=== PATIENT | male | born 1955 | race Hispanic/Latino ===

== ENCOUNTER 2017-08-12 18:31 | Emergency (ER) | payer OTHER ==
[2017-08-12] MEDS ORDERED: BENADRYL ONE (18:44)
[2017-08-12] MEDS ORDERED: REGLAN ONE (18:44)
[2017-08-12] MEDS ORDERED: BENADRYL IV ONE (18:51)
[2017-08-12] MEDS ORDERED: REGLAN IV ONE (18:51)
[2017-08-12] MEDS ORDERED: PEPCID IV ONE (18:54)
[2017-08-12] MEDS ORDERED: NACL 0.9% 1000 ML 1,000 ML IV ONE (18:58)
--- NOTE | 2017-08-12 18:59 | Emergency Department Report ---
ED Abdominal Pain HPI - General Chief Complaint: Abdominal Pain Stated Complaint: N/V AND ABD PAIN Time Seen by Provider: 08/12/17 18:40 Source: patient, old records reviewed (no previous [facility] record available for review) Mode of arrival: Stretcher Limitations: No Limitations - History of Present Illness Initial Comments: 61-year-old male with a past medical history of atrial fibrillation currently on Eliquis, hypertension, alcohol abuse, alcohol-induced pancreatitis, and CAD presents to the hospital with complains of intractable nausea and vomiting and a syncopal episode. Patient has been having nausea vomiting since last night. Today while taking a shower sitting down he had a syncopal episode and bumped his head. Patient with intractable nausea and vomiting despite receiving Zofran in route to the ER patient continues to vomit. He complains of mid and upper burning constant abdominal pain worse with vomiting. He also complains of a headache. Patient admits to daily alcohol use with his continued alcohol use one week ago. Alcohol withdrawal tremors in the past without seizure patient denies tremors at this time. No previous abdominal surgeries. No reports of fever, hematemesis, melena, hematochezia, or diarrhea. Patient states he had a cardiac cath performed 6 months ago in [place] showing 40% blockage of one of his arteries. He states he did not require any stenting or bypass. - Related Data Previous Rx's Medication Instructions Recorded Last Taken Type HYDROcodone/APAP 5-325 [[place] 1 each PO Q6HR PRN #14 tablet 08/13/17 Unknown Rx 5/325] Nitrofurantoin [place]/M-Cryst 100 mg PO Q12HR #10 capsule 08/13/17 Unknown Rx [Macrobid CAP] Ondansetron [Zofran Odt] 4 mg PO Q4HR PRN #20 tab.rapdis 08/13/17 Unknown Rx Promethazine HCl [Phenergan SUPPOS] 25 mg RC Q6HR PRN #20 supp.rect 08/13/17 Unknown Rx chlordiazePOXIDE [Librium] 50 mg PO DAILY #20 capsule 08/13/17 Unknown Rx Allergies Allergy/AdvReac Type Severity Reaction Status Date / Time No Known Allergies Allergy Unverified 08/12/17 23:02 ED Review of Systems ROS: Stated complaint: N/V AND ABD PAIN Other details as noted in HPI Comment: All other systems reviewed and negative Other: Constitutional: No fevers chills Eyes: No eye pain visual changes or discharge ENT: No ear pain or throat pain Neck: Denies pain Respiratory: Denies cough wheezing shortness of breath Cardiovascular: Denies chest pain, palpitations GI: As per HPI : Denies dysuria Musculoskeletal: Denies back pain Skin: Denies rash, lesions, erythema Neurologic: Denies numbness, weakness Psychiatric: Denies suicidal ideation, hallucinations ED Past Medical Hx - Past Medical History Previous Medical History?: Yes Hx Hypertension: Yes Hx Heart Attack/AMI: Yes (aprox feb 2017 cath with 40% stenosis, no intervention as per pt) Hx Diabetes: No Additional medical history: afib. Alcohol-induced pancreatitis. Alcohol abuse - Surgical History Past Surgical History?: Yes Additional Surgical History: heart cath aprox 02/2017 [place] - Social History Smoking Status: Current Every Day Smoker Substance Use Type: Alcohol - Medications Home Medications: Home Medications Medication Instructions Recorded Confirmed Last Taken Type HYDROcodone/APAP 5-325 [[place] 1 each PO Q6HR PRN #14 tablet 08/13/17 Unknown Rx 5/325] Nitrofurantoin [place]/M-Cryst 100 mg PO Q12HR #10 capsule 08/13/17 Unknown Rx [Macrobid CAP] Ondansetron [Zofran Odt] 4 mg PO Q4HR PRN #20 tab.rapdis 08/13/17 Unknown Rx Promethazine HCl [Phenergan SUPPOS] 25 mg RC Q6HR PRN #20 supp.rect 08/13/17 Unknown Rx chlordiazePOXIDE [Librium] 50 mg PO DAILY #20 capsule 08/13/17 Unknown Rx ED Physical Exam - General Limitations: No Limitations - Other Other exam information: General: Moderate distress secondary to pain and vomiting Head exam: Atraumatic, normocephalic Eyes exam: Normal appearance, pupils equal reactive to light, extraocular movements intact ENT: Moist mucous membrane, normal oropharynx Neck exam: Normal inspection, full range of motion, no meningismus nontender Respiratory exam: Clear to auscultation bilateral, no wheezes, rales, crackles Cardiovascular: Tachycardic irregular rhythm Abdomen: Soft, nondistended, mid abdominal tenderness. Normal bowel sounds. No rebound or guarding. Persistent vomiting Extremity: Full range of motion normal inspection no deformity Back: Normal Inspection, full range of motion, no tenderness Neurologic: Alert, oriented x3, cranial nerves intact, no motor or sensory deficit Psychiatric: normal affect, normal mood Skin: Warm, dry, intact ED Course Vital Signs 08/12/17 08/12/17 08/12/17 18:39 18:51 19:01 Temperature 99.5 F Pulse Rate 130 H 129 H Respiratory 16 16 Rate Blood Pressure 130/79 128/86 152/102 O2 Sat by Pulse 100 96 98 Oximetry 08/12/17 08/12/17 08/12/17 19:03 19:15 19:30 Temperature Pulse Rate 137 H 106 H Respiratory 20 24 20 Rate Blood Pressure 128/86 117/90 O2 Sat by Pulse 100 100 Oximetry 08/12/17 08/12/17 08/12/17 19:45 20:01 20:12 Temperature 98 F Pulse Rate 102 H 92 H Respiratory 15 17 Rate Blood Pressure 125/83 112/91 O2 Sat by Pulse 97 98 Oximetry 08/12/17 08/12/17 08/12/17 20:15 20:30 21:03 Temperature Pulse Rate 92 H 95 H 98 H Respiratory 20 20 Rate Blood Pressure 115/95 121/61 121/61 O2 Sat by Pulse 100 96 Oximetry 08/12/17 08/12/17 08/12/17 21:15 21:31 21:45 Temperature Pulse Rate 88 87 97 H Respiratory 20 18 18 Rate Blood Pressure 121/61 121/61 154/80 O2 Sat by Pulse Oximetry 08/12/17 08/12/17 08/12/17 22:01 22:15 22:21 Temperature Pulse Rate 85 93 H 95 H Respiratory 19 20 23 Rate Blood Pressure 140/80 125/74 125/74 O2 Sat by Pulse 76 L 99 98 Oximetry 08/12/17 08/12/17 08/12/17 22:30 22:45 23:00 Temperature Pulse Rate 80 92 H 92 H Respiratory 19 22 17 Rate Blood Pressure 138/72 130/82 122/76 O2 Sat by Pulse 97 98 76 L Oximetry 08/12/17 08/12/17 08/12/17 23:15 23:30 23:45 Temperature Pulse Rate 80 81 87 Respiratory 22 21 16 Rate Blood Pressure 126/75 123/72 119/78 O2 Sat by Pulse 99 98 99 Oximetry 08/13/17 08/13/17 08/13/17 00:00 00:15 00:30 Temperature Pulse Rate 84 94 H 90 Respiratory 21 22 18 Rate Blood Pressure 118/73 117/78 117/81 O2 Sat by Pulse 95 99 98 Oximetry 08/13/17 08/13/17 08/13/17 00:45 01:00 01:16 Temperature Pulse Rate 84 88 99 H Respiratory 19 17 13 Rate Blood Pressure 127/84 136/65 113/59 O2 Sat by Pulse 99 91 91 Oximetry 08/13/17 08/13/17 01:30 01:45 Temperature Pulse Rate 82 88 Respiratory 13 12 Rate Blood Pressure 112/61 102/67 O2 Sat by Pulse 91 94 Oximetry - Reevaluation(s) Reevaluation #1: 08/13/17 00:51 After patient was medicated he slept or majority of ED stay with no other vomiting. Heart rate also improved ED Medical Decision Making - Lab Data Result diagrams: 08/12/17 18:55 08/12/17 18:55 Lab Results 08/12/17 08/12/17 08/12/17 Range/Units 18:55 18:55 18:55 WBC 8.0 (4.5-11.0) K/mm3 RBC 4.58 (3.65-5.03) M/mm3 Hgb 16.1 H (11.8-15.2) gm/dl Hct 48.0 H (35.5-45.6) % MCV 105 H (84-94) fl MCH 35 H (28-32) pg MCHC 34 (32-34) % RDW 15.4 H (13.2-15.2) % Plt Count 139 L (140-440) K/mm3 Lymph % (Auto) Remanufacturing Technician [place] % (Auto) Remanufacturing Technician Eos % (Auto) Remanufacturing Technician Baso % (Auto) Remanufacturing Technician Lymph # Remanufacturing Technician [place] # Remanufacturing Technician Eos # Remanufacturing Technician Baso # Remanufacturing Technician Add Manual Diff Complete Total Counted 100 Seg Neutrophils % Remanufacturing Technician Seg Neuts % (Manual) 88.0 H (40.0-70.0) % Band Neutrophils % 0 % Lymphocytes % (Manual) 9.0 L (13.4-35.0) % Reactive Lymphs % (Man) 0 % Monocytes % (Manual) 3.0 (0.0-7.3) % Eosinophils % (Manual) 0 (0.0-4.3) % Basophils % (Manual) 0 (0.0-1.8) % Metamyelocytes % 0 % Myelocytes % 0 % Promyelocytes % 0 % Blast Cells % 0 % Nucleated RBC % Not Reportable Seg Neutrophils # Remanufacturing Technician Seg Neutrophils # Man 7.0 (1.8-7.7) K/mm3 Band Neutrophils # 0.0 K/mm3 Lymphocytes # (Manual) 0.7 L (1.2-5.4) K/mm3 Abs React Lymphs (Man) 0.0 K/mm3 Monocytes # (Manual) 0.2 (0.0-0.8) K/mm3 Eosinophils # (Manual) 0.0 (0.0-0.4) K/mm3 Basophils # (Manual) 0.0 (0.0-0.1) K/mm3 Metamyelocytes # 0.0 K/mm3 Myelocytes # 0.0 K/mm3 Promyelocytes # 0.0 K/mm3 Blast Cells # 0.0 K/mm3 WBC Morphology Not Reportable Hypersegmented Neuts Not Reportable Hyposegmented Neuts Not Reportable Hypogranular Neuts Not Reportable Smudge Cells Not Reportable Toxic Granulation Not Reportable Toxic Vacuolation Not Reportable Dohle Bodies Not Reportable Pelger-Huet Anomaly Not Reportable Blanka Rods Not Reportable Platelet Estimate Consistent w auto Clumped Platelets Not Reportable Plt Clumps, EDTA Not Reportable Large Platelets Not Reportable Giant Platelets Not Reportable Platelet Satelliting Not Reportable Plt Morphology Comment Not Reportable RBC Morphology Not Reportable Dimorphic RBCs Not Reportable Polychromasia Not Reportable Hypochromasia Not Reportable Poikilocytosis Not Reportable Anisocytosis Few Microcytosis Not Reportable Macrocytosis Not Reportable Spherocytes Not Reportable Pappenheimer Bodies Not Reportable Sickle Cells Not Reportable Target Cells Not Reportable Tear Drop Cells Not Reportable Ovalocytes Not Reportable Helmet Cells Not Reportable [place] Bodies Not Reportable [place] Rings Not Reportable Sebas Cells Not Reportable Bite Cells Not Reportable Crenated Cell Not Reportable Elliptocytes Not Reportable Acanthocytes (Spur) Not Reportable Rouleaux Not Reportable Hemoglobin C Crystals Not Reportable Schistocytes Not Reportable Malaria parasites Not Reportable Shivam Bodies Not Reportable Hem Pathologist Commnt No PT (12.2-14.9) Sec. INR (0.87-1.13) APTT (24.2-36.6) Sec. Sodium 139 (137-145) mmol/L Potassium 3.7 (3.6-5.0) mmol/L Chloride 93.6 L (98-107) mmol/L Carbon Dioxide 22 (22-30) mmol/L Anion Gap 27 mmol/L BUN 16 (9-20) mg/dL Creatinine 0.9 (0.8-1.5) mg/dL Estimated GFR > 60 ml/min BUN/Creatinine Ratio 18 % Glucose 127 H (75-100) mg/dL Calcium 9.3 (8.4-10.2) mg/dL Magnesium 1.30 L (1.7-2.3) mg/dL Total Bilirubin 2.10 H (0.1-1.2) mg/dL AST 50 H (5-40) units/L ALT 35 (7-56) units/L Alkaline Phosphatase 42 (35-129) units/L Total Creatine Kinase 284 H (55-170) units/L CK-MB (CK-2) 4.6 H (0.0-4.0) ng/mL CK-MB (CK-2) Rel Index 1.6 (0-4) Troponin T < 0.010 (0.00-0.029) ng/mL Total Protein 7.3 (6.3-8.2) g/dL Albumin 4.5 (3.9-5) g/dL Albumin/Globulin Ratio 1.6 % Lipase 44 (13-60) units/L TSH 0.844 (0.270-4.200) mlU/mL Free T4 1.78 H (0.76-1.46) ng/dL Urine Color (Yellow) Urine Turbidity (Clear) Urine pH (5.0-7.0) Ur Specific [place] (1.003-1.030) Urine Protein (Negative) mg/dL Urine Glucose (UA) (Negative) mg/dL Urine Ketones (Negative) mg/dL Urine Blood (Negative) Urine Nitrite (Negative) Urine Bilirubin (Negative) Urine Urobilinogen (<2.0) mg/dL Ur Leukocyte Esterase (Negative) Urine WBC (Auto) (0.0-6.0) /HPF Urine RBC (Auto) (0.0-6.0) /HPF U Epithel Cells (Auto) (0-13.0) /HPF Urine Bacteria (Auto) (Negative) /HPF Hyaline Casts /LPF Urine Mucus /HPF Urine Opiates Screen Urine Methadone Screen Ur Barbiturates Screen Ur Phencyclidine Scrn Ur Amphetamines Screen U Benzodiazepines Scrn Urine Cocaine Screen U Marijuana (THC) Screen Drugs of Abuse Note Plasma/Serum Alcohol (0-0.07) % 08/12/17 08/12/17 08/12/17 Range/Units 18:55 18:55 20:30 WBC (4.5-11.0) K/mm3 RBC (3.65-5.03) M/mm3 Hgb (11.8-15.2) gm/dl Hct (35.5-45.6) % MCV (84-94) fl MCH (28-32) pg MCHC (32-34) % RDW (13.2-15.2) % Plt Count (140-440) K/mm3 Lymph % (Auto) [place] % (Auto) Eos % (Auto) Baso % (Auto) Lymph # [place] # Eos # Baso # Add Manual Diff Total Counted Seg Neutrophils % Seg Neuts % (Manual) (40.0-70.0) % Band Neutrophils % % Lymphocytes % (Manual) (13.4-35.0) % Reactive Lymphs % (Man) % Monocytes % (Manual) (0.0-7.3) % Eosinophils % (Manual) (0.0-4.3) % Basophils % (Manual) (0.0-1.8) % Metamyelocytes % % Myelocytes % % Promyelocytes % % Blast Cells % % Nucleated RBC % Seg Neutrophils # Seg Neutrophils # Man (1.8-7.7) K/mm3 Band Neutrophils # K/mm3 Lymphocytes # (Manual) (1.2-5.4) K/mm3 Abs React Lymphs (Man) K/mm3 Monocytes # (Manual) (0.0-0.8) K/mm3 Eosinophils # (Manual) (0.0-0.4) K/mm3 Basophils # (Manual) (0.0-0.1) K/mm3 Metamyelocytes # K/mm3 Myelocytes # K/mm3 Promyelocytes # K/mm3 Blast Cells # K/mm3 WBC Morphology Hypersegmented Neuts Hyposegmented Neuts Hypogranular Neuts Smudge Cells Toxic Granulation Toxic Vacuolation Dohle Bodies Pelger-Huet Anomaly Blanka Rods Platelet Estimate Clumped Platelets Plt Clumps, EDTA Large Platelets Giant Platelets Platelet Satelliting Plt Morphology Comment RBC Morphology Dimorphic RBCs Polychromasia Hypochromasia Poikilocytosis Anisocytosis Microcytosis Macrocytosis Spherocytes Pappenheimer Bodies Sickle Cells Target Cells Tear Drop Cells Ovalocytes Helmet Cells [place] Bodies Toutle Rings [place] Cells Bite Cells Crenated Cell Elliptocytes Acanthocytes (Spur) Rouleaux Hemoglobin C Crystals Schistocytes Malaria parasites Shivam Bodies Hem Pathologist Commnt PT 12.3 (12.2-14.9) Sec. INR 0.87 (0.87-1.13) APTT 27.5 (24.2-36.6) Sec. Sodium (137-145) mmol/L Potassium (3.6-5.0) mmol/L Chloride (98-107) mmol/L Carbon Dioxide (22-30) mmol/L Anion Gap mmol/L BUN (9-20) mg/dL Creatinine (0.8-1.5) mg/dL Estimated GFR ml/min BUN/Creatinine Ratio % Glucose (75-100) mg/dL Calcium (8.4-10.2) mg/dL Magnesium (1.7-2.3) mg/dL Total Bilirubin (0.1-1.2) mg/dL AST (5-40) units/L ALT (7-56) units/L Alkaline Phosphatase (35-129) units/L Total Creatine Kinase (55-170) units/L CK-MB (CK-2) (0.0-4.0) ng/mL CK-MB (CK-2) Rel Index (0-4) Troponin T (0.00-0.029) ng/mL Total Protein (6.3-8.2) g/dL Albumin (3.9-5) g/dL Albumin/Globulin Ratio % Lipase (13-60) units/L TSH (0.270-4.200) mlU/mL Free T4 (0.76-1.46) ng/dL Urine Color [place] (Yellow) Urine Turbidity Clear (Clear) Urine pH 7.0 (5.0-7.0) Ur Specific [place] 1.021 (1.003-1.030) Urine Protein 100 mg/dl (Negative) mg/dL Urine Glucose (UA) 50 (Negative) mg/dL Urine Ketones Tr (Negative) mg/dL Urine Blood Sm (Negative) Urine Nitrite Neg (Negative) Urine Bilirubin Neg (Negative) Urine Urobilinogen 4.0 (<2.0) mg/dL Ur Leukocyte Esterase Neg (Negative) Urine WBC (Auto) 9.0 H (0.0-6.0) /HPF Urine RBC (Auto) 13.0 (0.0-6.0) /HPF U Epithel Cells (Auto) < 1.0 (0-13.0) /HPF Urine Bacteria (Auto) 1+ (Negative) /HPF Hyaline Casts 1 /LPF Urine Mucus 2+ /HPF Urine Opiates Screen Urine Methadone Screen Ur Barbiturates Screen Ur Phencyclidine Scrn Ur Amphetamines Screen U Benzodiazepines Scrn Urine Cocaine Screen U Marijuana (THC) Screen Drugs of Abuse Note Plasma/Serum Alcohol < 0.01 (0-0.07) % 08/12/17 Range/Units 20:30 WBC (4.5-11.0) K/mm3 RBC (3.65-5.03) M/mm3 Hgb (11.8-15.2) gm/dl Hct (35.5-45.6) % MCV (84-94) fl MCH (28-32) pg MCHC (32-34) % RDW (13.2-15.2) % Plt Count (140-440) K/mm3 Lymph % (Auto) [place] % (Auto) Eos % (Auto) Baso % (Auto) Lymph # [place] # Eos # Baso # Add Manual Diff Total Counted Seg Neutrophils % Seg Neuts % (Manual) (40.0-70.0) % Band Neutrophils % % Lymphocytes % (Manual) (13.4-35.0) % Reactive Lymphs % (Man) % Monocytes % (Manual) (0.0-7.3) % Eosinophils % (Manual) (0.0-4.3) % Basophils % (Manual) (0.0-1.8) % Metamyelocytes % % Myelocytes % % Promyelocytes % % Blast Cells % % Nucleated RBC % Seg Neutrophils # Seg Neutrophils # Man (1.8-7.7) K/mm3 Band Neutrophils # K/mm3 Lymphocytes # (Manual) (1.2-5.4) K/mm3 Abs React Lymphs (Man) K/mm3 Monocytes # (Manual) (0.0-0.8) K/mm3 Eosinophils # (Manual) (0.0-0.4) K/mm3 Basophils # (Manual) (0.0-0.1) K/mm3 Metamyelocytes # K/mm3 Myelocytes # K/mm3 Promyelocytes # K/mm3 Blast Cells # K/mm3 WBC Morphology Hypersegmented Neuts Hyposegmented Neuts Hypogranular Neuts Smudge Cells Toxic Granulation Toxic Vacuolation Dohle Bodies Pelger-Huet Anomaly Blanka Rods Platelet Estimate Clumped Platelets Plt Clumps, EDTA Large Platelets Giant Platelets Platelet Satelliting Plt Morphology Comment RBC Morphology Dimorphic RBCs Polychromasia Hypochromasia Poikilocytosis Anisocytosis Microcytosis Macrocytosis Spherocytes Pappenheimer Bodies Sickle Cells Target Cells Tear Drop Cells Ovalocytes Helmet Cells [place] Bodies Toutle Rings [place] Cells Bite Cells Crenated Cell Elliptocytes Acanthocytes (Spur) Rouleaux Hemoglobin C Crystals Schistocytes Malaria parasites Shivam Bodies Hem Pathologist Commnt PT (12.2-14.9) Sec. INR (0.87-1.13) APTT (24.2-36.6) Sec. Sodium (137-145) mmol/L Potassium (3.6-5.0) mmol/L Chloride (98-107) mmol/L Carbon Dioxide (22-30) mmol/L Anion Gap mmol/L BUN (9-20) mg/dL Creatinine (0.8-1.5) mg/dL Estimated GFR ml/min BUN/Creatinine Ratio % Glucose (75-100) mg/dL Calcium (8.4-10.2) mg/dL Magnesium (1.7-2.3) mg/dL Total Bilirubin (0.1-1.2) mg/dL AST (5-40) units/L ALT (7-56) units/L Alkaline Phosphatase (35-129) units/L Total Creatine Kinase (55-170) units/L CK-MB (CK-2) (0.0-4.0) ng/mL CK-MB (CK-2) Rel Index (0-4) Troponin T (0.00-0.029) ng/mL Total Protein (6.3-8.2) g/dL Albumin (3.9-5) g/dL Albumin/Globulin Ratio % Lipase (13-60) units/L TSH (0.270-4.200) mlU/mL Free T4 (0.76-1.46) ng/dL Urine Color (Yellow) Urine Turbidity (Clear) Urine pH (5.0-7.0) Ur Specific [place] (1.003-1.030) Urine Protein (Negative) mg/dL Urine Glucose (UA) (Negative) mg/dL Urine Ketones (Negative) mg/dL Urine Blood (Negative) Urine Nitrite (Negative) Urine Bilirubin (Negative) Urine Urobilinogen (<2.0) mg/dL Ur Leukocyte Esterase (Negative) Urine WBC (Auto) (0.0-6.0) /HPF Urine RBC (Auto) (0.0-6.0) /HPF U Epithel Cells (Auto) (0-13.0) /HPF Urine Bacteria (Auto) (Negative) /HPF Hyaline Casts /LPF Urine Mucus /HPF Urine Opiates Screen Presumptive negative Urine Methadone Screen Presumptive negative Ur Barbiturates Screen Presumptive negative Ur Phencyclidine Scrn Presumptive negative Ur Amphetamines Screen Presumptive negative U Benzodiazepines Scrn Presumptive negative Urine Cocaine Screen Presumptive negative U Marijuana (THC) Screen Presumptive negative Drugs of Abuse Note Disclamer Plasma/Serum Alcohol (0-0.07) % - EKG Data -: EKG Interpreted by Me (atrial fibrillation 124) EKG shows normal: axis (-30), QRS complexes (92), ST-T waves (no stemi/t inv) Rate: tachycardia - Radiology Data Radiology results: report reviewed Chest x-ray: No acute findings CT head: Arachnoid cyst in the posterior fossa. No acute intracranial process CT of the pelvis with IV contrast: No acute intra-abdominal process. Bilateral nonobstructive renal calculi. Left mid pole renal cyst contains calcification along wall. Enlarged prostate. Sigmoid diverticulosis. Bilateral inguinal hernias and a small hiatal hernia - Medical Decision Making Syncope likely related to dehydration and frequent vomiting episodes. Tachycardia improved with hydration, pain and vomiting control as well as after Ativan No tremors noted upon arrival patient states she has had some mild tremors at home like he secondary to alcohol withdrawal Patient will be discharged home with symptomatic treatment for mild alcohol withdrawal tremors, vomiting last gastritis, and UTI based increased urine wbc Patient received IV magnesium for mild hypomagnesemia, banana bag, and normal saline addition to Zofran, Reglan, and Dilaudid - Differential Diagnosis A. fib RVR, pancreatitis, dehydration, gastritis, [place] Critical Care Time: No Critical care attestation.: If time is entered above; I have spent that time in minutes in the direct care of this critically ill patient, excluding procedure time. ED Disposition Clinical Impression: Acute gastritis, Alcohol dependence, UTI (urinary tract infection), Chronic atrial fibrillation, Hypomagnesemia Disposition: TO HOME OR SELFCARE Is pt being admited?: No Does the pt Need Aspirin: No Condition: Stable Instructions: Gastritis (ED), Urinary Tract Infection in Women (ED), Abuse of Alcohol (ED) Additional Instructions: Take the medication as prescribed. Take Librium to prevent alcohol withdrawal symptoms. Please return if symptoms worsen. A CAT scan does show several incidental findings including stones in the kidneys, enlarged prostate, and diverticulosis. Follow with a primary care doctor for further monitoring Prescriptions: chlordiazePOXIDE [Librium] 50 mg PO DAILY #20 capsule HYDROcodone/APAP 5-325 [[place] 5/325] 1 each PO Q6HR PRN #14 tablet PRN Reason: Pain Nitrofurantoin [place]/M-Cryst [Macrobid CAP] 100 mg PO Q12HR #10 capsule Ondansetron [Zofran Odt] 4 mg PO Q4HR PRN #20 tab.rapdis PRN Reason: Nausea And Vomiting Promethazine HCl [Phenergan SUPPOS] 25 mg RC Q6HR PRN #20 supp.rect PRN Reason: Nausea And Vomiting Referrals: PRIMARY CARE, [Primary Care Provider] - 3-5 Days [facility] [Provider Group] - 3-5 Days POOJA ALEXANDER MD [Staff Physician] - 3-5 Days [facility] [Outside] - 3-5 Days (for help with alcohol abuse ) Time of Disposition: 02:07
[2017-08-12] MEDS ORDERED: ATIVAN IV ONE (19:03)
[2017-08-12 19:20] LABS: Hemoglobin 16.1 gm/dl (11.8-15.2); Mean Corpuscular HGB Conc 34 % (32-34); Mean Corpuscular Hemoglobin 35 pg (28-32); Mean Corpuscular Volume 105 fl (84-94); Platelet Count 139 K/mm3 (140-440); Red Blood Count 4.58 M/mm3 (3.65-5.03); Red Cell Distribution Width 15.4 % (13.2-15.2)
[2017-08-12 19:38] LABS: INR 0.87 (0.87-1.13); Partial Thromboplastin Time 27.5 Sec. (24.2-36.6)
[2017-08-12 19:40] LABS: Creatine Kinase MB 4.6 ng/mL (0.0-4.0)
[2017-08-12 19:41] LABS: Alanine Aminotransferase 35 units/L (7-56); Albumin 4.5 g/dL (3.9-5); BUN/Creatinine Ratio 18; Blood Urea Nitrogen 16 mg/dL (9-20); Calcium 9.3 mg/dL (8.4-10.2); Hemolysis Index 64; Lipase 44 units/L (13-60)
[2017-08-12] MEDS ORDERED: MAGNESIUM SULFATE 2GM/50ML 2 GM/50 ML BAG IV ONE (19:45)
[2017-08-12 19:46] LABS: Free T4 (Free Thyroxine) 1.78 ng/dL (0.76-1.46)
[2017-08-12 19:58] LABS: Basophils % (Manual) 0 % (0.0-1.8); Eosinophils % (Manual) 0 % (0.0-4.3); Total Cells Counted 100
[2017-08-12 20:00] LABS: Anisocytosis Few; Platelet Estimate Consistent w Auto
[2017-08-12] MEDS ORDERED: FOLVITE 1 MG, INFUVITE 10 ML in NACL 0.9% 1000 ML 1,000 ML IV ONE (20:00)
[2017-08-12] MEDS ORDERED: VITAMIN B-1 100 MG, FOLVITE 1 MG, INFUVITE 10 ML in NACL 0.9% 1000 ML 1,000 ML IV ONE (20:00)
[2017-08-12] MEDS ORDERED: NACL ONE (20:23)
[2017-08-12 21:05] LABS: Bacteria,Urine 1+ /HPF (Negative); Bilirubin,Urine NEG (Negative); Blood,Urine SM (Negative); Color,Urine Amber (Yellow); Hyaline Casts,Urine 1 /LPF; Mucus,Urine 2+ /HPF; Nitrite,Urine NEG (Negative)
--- NOTE | 2017-08-12 21:21 | XRay Report ---
FINAL REPORT EXAM: XR CHEST 1V AP HISTORY: cp TECHNIQUE: AP portable view of the chest PRIORS: None. FINDINGS: Lines, tubes, and devices: N/A Lungs and pleura: Trachea is normal in position. Calcified granulomas in the left lateral costophrenic angle are noted. Lungs are clear of infiltrate, pleural effusion, vascular congestion, or pneumothorax. Cardiomediastinal silhouette: Cardiac and mediastinal silhouettes are unremarkable. Other: Bony structures are intact. IMPRESSION: No acute cardiopulmonary process seen.
[2017-08-12 21:27] LABS: Amphetamine Screen,Urine PRESUMPTIVE NEGATIVE; Benzodiazepines Screen,Urine PRESUMPTIVE NEGATIVE; Cannabinoid Screen,Urine PRESUMPTIVE NEGATIVE; Cocaine Screen,Urine PRESUMPTIVE NEGATIVE; Methadone Screen,Urine PRESUMPTIVE NEGATIVE; Opiate Screen,Urine PRESUMPTIVE NEGATIVE
[2017-08-12] MEDS ORDERED: ROCEPHIN/NS 1 GM/50 ML 1 GM/50 ML BAG IV ONE (22:02)
--- NOTE | 2017-08-12 22:11 | Cat Scan Report ---
FINAL REPORT EXAM: CT HEAD/BRAIN WO CON HISTORY: syncope TECHNIQUE: Standard unenhanced CT of the head at 5.0 millimeter axial increments. PRIORS: None. FINDINGS: The ventricular system is normal in size and configuration. There is no evidence for parenchymal volume loss. A low-density arachnoid cyst is present in the posterior fossa to the left of midline measuring 4.0 x 2.8 cm. There is no evidence for mass lesion, mass effect, midline shift, acute intracranial hemorrhage, or acute ischemia/ infarction. No evidence for acute skull fracture is seen. No abnormality in the overlying scalp soft tissues is seen. Visualized paranasal sinuses are clear. IMPRESSION: Arachnoid cyst in the posterior fossa. No acute intracranial process noted.
[2017-08-12] MEDS ORDERED: cefTRIAXone 1 GM in NACL 0.9% 20 ML IV ONE (22:15)
--- NOTE | 2017-08-12 22:18 | Cat Scan Report ---
FINAL REPORT EXAM: CT ABDOMEN PELVIS W CON HISTORY: n,v, hx of ETOH pancreatitis TECHNIQUE: Standard enhanced CT of the abdomen and pelvis. Coronal and sagittal reconstruction was also performed. Contrast: 100 mL Omnipaque 300 given IV. PRIORS: None. FINDINGS: Within the abdomen, the liver, spleen, pancreas, gallbladder, and adrenal glands are unremarkable. A nonobstructing 2 mm calculus in the midpole left kidney is seen. A punctate 2 mm nonobstructing calculus in the upper pole right kidney is seen. There is a 1.4 x 1.6 cm cystic focus in the anterior midpole left kidney. A small punctate calcifications present along 1 wall (axial image 86). No evidence for retroperitoneal or pelvic adenopathy is seen. The bowel loops have normal caliber. No soft tissue mass, fluid collection, inflammatory change, or free air is seen within the abdomen or pelvis. The appendix is normal. Within the pelvis, the bladder is unremarkable. The prostate is mildly enlarged. No evidence for mass or fluid collection is seen in the pelvis. Sigmoid diverticulosis is noted without active diverticulitis. Images through the upper abdomen include the lung bases which are expanded and clear. A small hiatal hernia is present. Small bilateral inguinal hernias are noted containing only fat. Bony structures show no focal abnormalities and are intact. No evidence for bony fracture is seen. IMPRESSION: 1. no acute intra-abdominal process noted. No evidence for acute pancreatitis. 2. Bilateral nonobstructing renal calculi 3. Left midpole renal cyst contains calcification along the wall. 4. Prostate enlarged 5. Sigmoid diverticulosis 6. Bilateral inguinal hernias and a small hiatal hernia
[2017-08-12] MEDS ORDERED: ZOFRAN IV ONE (23:18)
[2017-08-13] MEDS ORDERED: DILAUDID IV ONE (00:55)
[2017-08-13 04:02] VITALS: BP 132/80
== END 2017-08-13 04:04 | disposition home or self-care (01) ==
LOC: ED 18:31
DX: K29.00 Acute gastritis without bleeding (principal); F10.20 Alcohol dependence, uncomplicated; N39.0 Urinary tract infection, site not specified; I48.2 Chronic atrial fibrillation; E83.42 Hypomagnesemia; R55 Syncope and collapse; R51 Headache; I10 Essential (primary) hypertension; F17.200 Nicotine dependence, unspecified, uncomplicated; Z79.01 Long term (current) use of anticoagulants
CPT/HCPCS: 36415; 70450; 71045; 74177; 80053; 80307; 81001; 82550; 82553; 83690; 83735; 84439; 84443; 84484; 85007; 85025; 85610; 85730; 93005; 93010; 96365; 96366; 96368; 96375; 96376; 99285; G0480; J0696; J1170; J1200; J2060; J2405; J2765; J3475; J7030; Q9967; 80320; J3411